=== PATIENT | female | born 1990 | race Caucasian/White ===

== ENCOUNTER 2018-04-18 16:11 | Inpatient (IN) | payer OTHER ==
[~2018-04-18] VITALS: Ht 165.1 cm; Wt 68.0 kg
[~2018-04-18 16:11] MED LIST: PRENATAL TABLE1 EAC2 PO
[2018-04-23] MEDS ORDERED: FOLITAB 500 CA1 EACH PO (13:36)
[2018-04-23] MEDS ORDERED: OXYC1TAB9 PO (13:36)
== END 2018-04-23 16:00 | DRG 765 ==
LOC: LDR 04-21 06:19 → OB/GYN 04-21 06:19 → LDR 04-21 06:33 → OB/GYN 04-21 22:27
PROC: 10D00Z1 Extraction of Products of Conception, Low, Open Approach (ICD-10-PCS; principal; 2018-04-21)
PROC: 0UL70ZZ Occlusion of Bilateral Fallopian Tubes, Open Approach (ICD-10-PCS; 2018-04-21)
PROC: 10907ZC Drainage of Amniotic Fluid, Therapeutic from Products of Conception, Via Natural or Artificial Opening (ICD-10-PCS; 2018-04-21)
PROC: 3E033VJ Introduction of Other Hormone into Peripheral Vein, Percutaneous Approach (ICD-10-PCS; 2018-04-21)
PROC: 4A1HXCZ Monitoring of Products of Conception, Cardiac Rate, External Approach (ICD-10-PCS; 2018-04-21)
DX: O99.824 Streptococcus B carrier state complicating childbirth (principal); O98.32 Other infections with a predominantly sexual mode of transmission complicating childbirth; A63.0 Anogenital (venereal) warts; Z3A.39 39 weeks gestation of pregnancy; Z37.0 Single live birth; Z30.2 Encounter for sterilization

== ENCOUNTER 2019-12-05 15:11 | Emergency (ER) | payer OTHER ==
[~2019-12-05] VITALS: Ht 165.1 cm; Wt 49.9 kg
[~2019-12-05 15:11] MED LIST changes: +FOLITAB 500 CA1 EACH PO; +OXYC1TAB9 PO
== END 2019-12-05 20:35 | disposition home or self-care (01) ==
LOC: ER
DX: J11.1 Influenza due to unidentified influenza virus with other respiratory manifestations (principal); B96.0 Mycoplasma pneumoniae [M. pneumoniae] as the cause of diseases classified elsewhere

== ENCOUNTER 2019-12-09 11:15 | Emergency (ER) | payer OTHER ==
[~2019-12-09] VITALS: Ht 165.1 cm; Wt 49.9 kg
[2019-12-09] MEDS ORDERED: ZITHROMAX500 MG PO (11:22)
== END 2019-12-09 18:35 | disposition home or self-care (01) ==
LOC: ER 11:15
DX: B33.8 Other specified viral diseases (principal); B96.0 Mycoplasma pneumoniae [M. pneumoniae] as the cause of diseases classified elsewhere

== ENCOUNTER 2020-10-06 15:59 | Emergency (ER) | payer OTHER ==
[~2020-10-06] VITALS: Ht 162.6 cm; Wt 49.9 kg
[~2020-10-06 15:59] MED LIST changes: +ZITHROMAX500 MG PO
== END 2020-10-06 19:27 | disposition home or self-care (01) ==
LOC: ER 15:59
DX: N39.0 Urinary tract infection, site not specified (principal); Z20.828 Contact with and (suspected) exposure to other viral communicable diseases; B96.29 Other Escherichia coli [E. coli] as the cause of diseases classified elsewhere

== ENCOUNTER 2020-10-07 20:43 | Emergency (ER) | payer OTHER ==
[~2020-10-07] VITALS: Ht 167.6 cm; Wt 50.3 kg
== END 2020-10-08 00:13 | disposition home or self-care (01) ==
LOC: ER 20:43
DX: N39.0 Urinary tract infection, site not specified (principal); B96.29 Other Escherichia coli [E. coli] as the cause of diseases classified elsewhere

== ENCOUNTER 2021-09-18 21:54 | Emergency (ER) | payer OTHER ==
[~2021-09-18] VITALS: Ht 165.1 cm; Wt 52.2 kg
[2021-09-19] MEDS ORDERED: ORPHENADRINE C100 MG PO (01:59)
[2021-09-19] MEDS ORDERED: KETO10TA2 PO (01:59)
== END 2021-09-19 02:04 ==
LOC: ER 21:54
DX: S09.8XXA Other specified injuries of head, initial encounter (principal); W22.09XA Striking against other stationary object, initial encounter; Y92.219 Unspecified school as the place of occurrence of the external cause

== ENCOUNTER 2021-10-17 09:36 | Emergency (ER) | payer OTHER ==
[~2021-10-17] VITALS: Ht 165.1 cm; Wt 59.0 kg
[~2021-10-17 09:36] MED LIST changes: +KETO10TA2 PO; +ORPHENADRINE C100 MG PO
== END 2021-10-17 12:38 | disposition home or self-care (01) ==
LOC: ER 09:36
DX: U07.1 COVID-19 (principal)